=== PATIENT | male | born 1965 | race Caucasian/White ===

== ENCOUNTER 2017-11-07 11:34 | Emergency (ER) | payer MEDICAID ==
[~2017-11-07] VITALS: Ht 177.8 cm; Wt 72.6 kg
[2017-11-07 11:35] VITALS: BP_SYST 123
--- NOTE | 2017-11-07 11:38 | NUR ---
PATIENT COMING IN FOR PRESCRIPTION REFILL OF XANAX 0.5MG. PT HAS NO PMD HERE ARRIVED FROM [place].
[2017-11-07] MEDS ORDERED: ALPR0.5T96 PO (11:46)
--- NOTE | 2017-11-07 14:23 | NUR ---
Ambulatory to [facility]. Recieved report from [facility]
--- NOTE | 2017-11-07 14:40 | NUR ---
Pt states that he moved here from [place] and is out of his RX of xanax 0.5mg that he had been taking for 1.5 years. He does not have a new PMD in [place]. Denies chest pain, denies anxiety.
--- NOTE | 2017-11-07 14:47 | NUR ---
Dr. Geiger at bedside for evaluation
[2017-11-07 15:10] VITALS: BP_SYST 132
--- NOTE | 2017-11-07 15:10 | NUR ---
Patient given written and verbal discharge instructions and verbalizes understanding. ER MD discussed with patient the results and treatment provided. Patient in stable condition. ID arm band removed. Rx of Xanax given. Patient educated on pain management and to follow up with PMD. Pain Scale 0/10. Opportunity for questions provided and answered.
== END 2017-11-07 15:10 | disposition home or self-care (01) ==
LOC: SED 11:34
DX: Z76.0 Encounter for issue of repeat prescription (principal); F41.9 Anxiety disorder, unspecified
CPT/HCPCS: 99283